=== PATIENT | female | born 1950 | race Caucasian/White ===

== ENCOUNTER 2017-11-29 11:11 | Emergency (ER) | payer OTHER ==
[~2017-11-29] VITALS: Ht 157.5 cm; Wt 70.0 kg
[2017-11-29 11:16] VITALS: BP 121/73; PULSE 82; TEMP 36.6; O2SAT 100; Ht 157.5 cm; Wt 70.0 kg
--- NOTE | 2017-11-29 11:50 | EMERGENCY ROOM VISIT NOTE ---
History First contact with patient: 11:28 Chief Complaint: SYNCOPE Stated Complaint: VOMITING, TINGLING FINGERS, SYNCOPE Nursing Triage Summary: patient to ED from surgical waiting with RN, per RN patient "was given bad news about her 's procedure" after which patient became syncopal, emesis x1 patient states "I react very physically, I don't feel tingly or dizzy now." History of Present Illness The patient is a 67 year old female who presents to the Emergency Room with complaints of vomiting and lightheadedness after she received some bad news. The patient is here in the hospital with her when she received the bad news. She reports she has not eaten today. The patient wishes to be discharged [facility] so she can be with her . She is requesting some Gatorade and some food. She does not want anything else to be done. Review of Systems See HPI for pertinent positives & negatives. A total of 6 systems reviewed and were otherwise negative. Social History Smoking Status: Never Smoker Physical Exam Vital Signs Date Time Temp Pulse Resp B/P (MAP) Pulse Ox O2 Delivery O2 Flow Rate FiO2 11/29/17 11:16 36.6 82 20 121/73 100 Room Air Physical Exam GENERAL: Awake, alert, well-appearing, in no acute distress HENT: Normocephalic, atraumatic. Oropharynx unremarkable. EYES: Normal conjunctiva. Sclera non-icteric. NECK: Supple. No nuchal rigidity. FROM. No JVD. RECTAL: Deferred. MUSCULOSKELETAL: Chest examination reveals no tenderness. The back is symmetrical on inspection without obvious abnormality. There is no CVA tenderness to palpation. No joint edema. LOWER EXTREMITIES: Calves are equal size bilaterally and non-tender. No edema. No discoloration. NEURO: Normal sensorium. No sensory or motor deficits noted. SKIN: No rash or jaundice noted. Medical Decision & Procedures Medical Decision This is a 67-year-old female who reports that she did not eat this morning received some bad news with her . At that time the patient vomited and had what appears to be a vasovagal reaction. The patient wishes to leave the emergency department. She is going to get something to eat. She is drinking Gatorade here and feels much better and wishes to be with her . I feel that this is reasonable and I feel that her symptoms would be described as a vasovagal incident. I did have a talk with the patient and recommended she return to the emergency department if she develops any further symptoms but to get something to eat and follow-up with her primary care physician. The patient has demonstrated no significant defect in the decision-making capacity to make choices. The encounter had a good level of communication with language the patient can easily understand. I feel trust was present and conveyed that our action/intentions were the best interest of the patient. The patient was given all relevant information and reiterated the explained risks and benefits. The patient explained the reasoning for refusing treatment clearly. The patient possesses and expresses a set of values and goals, the ability to communicate and understand, and an ability to reason and deliberate. Despite acting emphatically, attentively and with the utmost patient's the patient declined further treatment. I offered options, negotiated, and explored every reasonable choice. I must respect the patient's autonomy and that they feel that their choices are best for them despite the associated risks of leaving without completing the evaluation. The patient was informed about the findings as listed above. All questions were answered and he was pleased with the treatment. Return instructions were outlined and the patient was discharged in stable condition. Impression Primary Impression: Vasovagal episode Departure Information Dispostion Home / Self-Care Condition GOOD Forms HOME CARE DOCUMENTATION FORM, School Instructions, Work Instructions, IMPORTANT VISIT INFORMATION Patient Instructions [facility], ED Near Syncope Vasovagal Additional Instructions Follow up with Dr Cardenas's office You have been examined and treated today on an emergency basis only. This is not a substitute for, or an effort to provide, complete comprehensive medical care. It is impossible to recognize and treat all injuries or illnesses in a single emergency department visit. It is therefore important that you follow up closely with Dr Cardenas. Call as soon as possible for an appointment. Thank you for your time and consideration. I look forward to speaking with you again soon. Please don't hesitate to call us if you have any questions.
== END 2017-11-29 11:45 | disposition home or self-care (01) ==
LOC: C.EDB 11:12
DX: R55 Syncope and collapse (principal)